=== PATIENT | male | born 1975 | race Caucasian/White ===

== ENCOUNTER → 2019-06-15 | Emergency (ER) | payer SELFPAY ==
[~2019-06-15] VITALS: Ht 185.4 cm; Wt 84.1 kg
[2019-06-15 20:33] VITALS: BP 128/83
== END | disposition left against medical advice (07) ==
LOC: ER 20:21
DX: M54.5 Low back pain (principal); Z53.21 Procedure and treatment not carried out due to patient leaving prior to being seen by health care provider

== ENCOUNTER 2023-06-21 21:19 | Emergency (ER) | payer OTHER ==
[~2023-06-21] VITALS: Ht 185.4 cm; Wt 83.2 kg
[2023-06-21 21:27] VITALS: BP 161/112; PULSE 104; RESP 16; TEMP 98.4; O2SAT 97
== END 2023-06-21 22:54 | disposition home or self-care (01) ==
LOC: ER 21:19
DX: S00.83XA Contusion of other part of head, initial encounter (principal); W22.8XXA Striking against or struck by other objects, initial encounter; Y93.89 Activity, other specified; Y92.89 Other specified places as the place of occurrence of the external cause; Y99.8 Other external cause status
CPT/HCPCS: 70450; 99284